=== PATIENT | female | born 1940 | race Caucasian/White ===

== ENCOUNTER 2017-04-28 09:50 | Emergency (ER) | payer MEDICARE, BC ==
[2017-04-28 10:43] LABS: URINE MUCUS NONE SEEN (Up to 25%); URINE RBC NONE SEEN (0-5/hpf); URINE WBC NONE SEEN (0-4/hpf)
[2017-04-28] MEDS ORDERED: ONDANSETRON HCL 4 MG/2 ML VIAL ONE (10:43)
[2017-04-28] MEDS ORDERED: NORMAL SALINE 500 ML IV ONE (10:43)
[2017-04-28] MEDS ORDERED: KETOROLAC TROMETHAMINE 30 MG/ML VIAL ONE (10:43)
[2017-04-28 10:45] LABS: BASOPHIL# 0.1 X 10^3uL (0.0-0.1); BASOPHILS 1.7 % (0.0-2.0); EOSINOPHILS 2.6 % (0.0-6.0); EOSINOPHILS# 0.1 X 10^3uL (0.0-0.4); HEMATOCRIT 43.5 % (36.0-48.0); HEMOGLOBIN 14.7 g/dL (12.0-16.0); LYMPHOCYTES 20.8 % (20.0-40.0); LYMPHOCYTES# 1.1 X 10^3uL (0.8-3.8); MEAN CORPUS. HGB CONCENTRATION 33.8 g/dL (32.0-36.0); MEAN CORPUSCULAR HEMOGLOBIN 30.8 pg (29.0-35.0); MEAN PLATELET VOLUME 8.6 fL (7.4-10.4); MONOCYTES 6.7 % (2.0-10.0); MONOCYTES# 0.4 X 10^3uL (0.2-1.0); NEUTROPHILS 68.2 % (54.0-75.0); NEUTROPHILS# 3.8 X 10^3uL (2.6-6.7); PLATELET COUNT 208 X 10^3uL (130-440); RED BLOOD COUNT 4.78 X 10^6uL (4.20-6.10); RED CELL DISTRIBUTION WIDTH 13.7 % (11.5-14.5); WHITE BLOOD COUNT 5.5 X 10^3uL (3.9-10.7)
[2017-04-28 10:54] LABS: ALBUMIN 4.6 g/dL (3.5-5.0); ALKALINE PHOSPHATASE 61 U/L (38-126); ALT 29 U/L (9-52); AST 20 U/L (14-36); BILIRUBIN, DIRECT 0.1 mg/dL (0.0-0.4); BILIRUBIN, TOTAL 0.7 mg/dL (0.2-1.3); BLOOD UREA NITROGEN 23 mg/dL (7-17); CALCIUM 9.7 mg/dL (8.4-10.2); CHLORIDE 105 mmol/L (98-107); EST GLOMERULAR FILTRATION RATE > 60 mL/min; GLUCOSE 130 mg/dL (70-100); LIPASE 226 U/L (23-300); POTASSIUM 4.2 mmol/L (3.5-5.1); SODIUM 143 mmol/L (137-145); TOTAL PROTEIN 7.9 g/dL (6.3-8.2); URINE APPEARANCE CLEAR; URINE BACTERIA <10 ORGANISMS/hpf (<10/hpf); URINE BILIRUBIN NEGATIVE (NEGATIVE); URINE BLOOD NEGATIVE (NEGATIVE); URINE COLOR YELLOW; URINE GLUCOSE NORMAL (NEGATIVE); URINE KETONE NEGATIVE (NEGATIVE); URINE LEUKOCYTE ESTERASE NEGATIVE (NEGATIVE); URINE NITRITE NEGATIVE (NEGATIVE); URINE PH 5.5 (5-7); URINE PROTEIN 10mg/dL (trace) (NEG - TRACE); URINE SQUAMOUS EPITHELIAL CELL 0-5/hpf (<= 15/hpf); URINE UROBILINOGEN 0.2mg/dL (Normal) (NEG-1mg/dL)
--- NOTE | 2017-04-28 11:51 | ER PHYSICIAN DOCUMENTATION ---
Physician Documentation [facility] Name:Raquel Parada Age:77 yrs Sex:Female :1940 Arrival Date:04/28/2017 Time:09:50 Bed6 Private MD: Pierre Self Disposition: 04/28/17 11:31 Discharged to Home/Self Care. Impression: Abdominal Pain, Right Upper Quadrant, Dehydration. - Condition is Good. - Discharge Instructions: ABDOMINAL PAIN, Unknown Cause, (Female), DEHYDRATION (4y-Adult). - Prescriptions for Zofran 4 mg Oral - take 1 tablet by ORAL route every 6 hours . as needed for nausea or vomiting; 20 tablet. Hydrocodone- Acetaminophen 5-325 mg Oral - take 0.5 tablet by ORAL route every 6 hours As needed; 12 tablet. - Medical Reconciliation form form. - Follow up: Private Physician; When: 7 - 10 days; Reason: Recheck today's complaints, Continuance of care. - Problem is new. - Symptoms are resolved. - Notes: Drink 1- 2 quarts of water every day. Take Ibuprofen 400mg by mouth every 6 hours with food for pain. Take Hydrocodone 1/2 tab by mouth every 6 hours if needed for severe pain Take Zofran 4mg by mouth every 6 hours as needed for nausea or vomiting If worsening pain, fever, chills or severe vomiting arise, go to the nearest ER. Follow up with your doctor in 2 - 3 days for recheck. HPI: 04/28 09:55 This 77 yrs old Female presents to ER via Private Vehicle with complaints of cd Right Flank Pain. 09:55 The patient complains of pain in the right mid back. The pain does not radiate. Onset: cd The symptom(s)/episode began/occurred gradually, 1 week(s) ago. Modifying factors: The symptoms are alleviated by nothing. the symptoms are aggravated by palpation/percussion. Associated signs and symptoms: Pertinent negatives: diarrhea, dysuria, fever, urinary frequency, hematuria, nausea, pain radiating to the lower extremities, vomiting. Severity of pain: At its worst the pain was moderate in the emergency department the pain is unchanged. The patient has experienced a previous episode, and the symptoms today are exactly the same, due to a kidney stone, but the pain was worse. No ETOH, has had her GB out. No history of Pancreatitis. Historical: - Allergies: PENICILLINS; Cipro PO; - Home Meds: 1. amlodipine-benazepril 5-20 mg oral cap 1 cap once daily for Hypertension 2. Ocuvite oral tab 3. Carina Oral - PMHx: HYPERTENSION; allergic rhinitis; cataracts; - PSHx: Cholecysectomy; KNEE SURGERY; - Tetanus: < 10 years. - Ebola Screening: : Patient negative for fever greater than or equal to 101.5 degrees Fahrenheit, and additional compatible Ebola Virus Disease symptoms. Patient denies exposure to infectious person. Patient denies travel to an Ebola-affected area in the 21 days before illness onset. . - Immunization history: Pneumococcal vaccine is up to date, Flu Vaccine < 1 year. - Social history: Smoking status: Patient states was never smoker of tobacco. ROS: 10:10 ENT: Negative for injury, pain, epistaxis and discharge. cd Cardiovascular: Negative for chest pain, palpitations, edema and pleuritic pain. 10:10 Respiratory: Negative for shortness of breath, dyspnea on exertion, cough, sputum cd production, wheezing, hemoptysis and pleuritic chest pain. MS/Extremity: Negative for injury, deformity, edema, calf tenderness, pain or coldness. Skin: Negative for injury, rash, itching and discoloration. 10:10 Neuro: Negative for headache, weakness, numbness, tingling, and seizure. 10:10 Constitutional: Positive for poor PO intake, Negative for chills, fever. 10:10 Abdomen/GI: Positive for abdominal pain, Negative for nausea, vomiting, diarrhea, constipation, abdominal distension, anorexia, hematemesis, black/tarry stool, rectal bleeding. 10:10 Back: Positive for pain at rest, of the right mid back. 10:10 : Negative for urinary symptoms, urinary frequency, pelvic pain, burning with urination, foul smelling urine. 10:10 All other systems are negative. Exam: ENT: Nares patent. No nasal discharge, no septal abnormalities noted. Tympanic membranes are normal and external auditory canals are clear. Oropharynx with no redness, swelling, or masses, exudates, or evidence of obstruction, uvula midline. Mucous membranes moist. Neck: Trachea midline, no thyromegaly or masses palpated, and no cervical lymphadenopathy. Supple, full range of motion without nuchal rigidity, or vertebral point tenderness. No Meningismus. Chest/axilla: Normal chest wall appearance and motion. Nontender with no deformity. No lesions are appreciated. Cardiovascular: Regular rate and rhythm with a normal S1 and S2. No gallops, murmurs, or rubs. Normal PMI, no JVD. No pulse deficits. 10:10 Respiratory: Lungs have equal breath sounds bilaterally, clear to auscultation and cd percussion. No rales, rhonchi or wheezes noted. No increased work of breathing, no retractions or nasal flaring. Skin: Warm, dry with normal turgor. Normal color with no rashes, no lesions, and no evidence of cellulitis. MS/ Extremity: Pulses equal, no cyanosis. Neurovascular intact. Full, normal range of motion. 10:10 Neuro: Awake and alert, GCS 15, oriented to person, place, time, and situation. Cranial nerves II-XII grossly intact. Motor strength 5/5 in all extremities. Sensory grossly intact. Cerebellar exam normal. Normal gait. 10:10 Constitutional: The patient appears alert, awake, non-diaphoretic, non-toxic, well developed, well nourished, in obvious distress, mildly distressed. 10:10 Abdomen/GI: Inspection: abdomen appears normal, Bowel sounds: normal, active, Palpation: mild abdominal tenderness, in the posterior aspect of right lateral abdomen, mass, is not appreciated, rebound tenderness, is not appreciated, voluntary guarding, is not appreciated, involuntary guarding, is not appreciated, no appreciated organomegaly, Rectal exam: the exam is deferred, Indicators: McBurney's point is not tender, Argueta's sign is negative. 10:10 Back: pain, that is mild, of the right mid back, ROM is normal, normal spinal alignment noted, CVA tenderness, that is mild, is noted on the right. 10:10 : CVA tenderness, on the right, Bladder: is normal. Vital Signs: 08:55 BP 165 / 90; Pulse 67; Resp 16; Pulse Ox 99% on R/A; lp 10:10 BP 143 / 97; Pulse 94; Resp 16; Temp 98.1(TE); Pulse Ox 96% on R/A; Weight 68.04 kg; lp Height 5 ft. 8 in. (172.72 cm); Pain 4/10; 10:56 BP 160 / 65; Pulse 70; Resp 16; Pulse Ox 98% on R/A; lp 11:46 BP 108 / 69; Pulse 77; Resp 14; Pulse Ox 96% on R/A; lp 10:10 Body Mass Index 22.81 (68.04 kg, 172.72 cm) lp [place] Coma Score: 10:10 Eye Response: spontaneous(4). Verbal Response: oriented(5). Motor Response: obeys cd commands(6). Total: 15. MDM: 10:23 Patient medically screened. cd 11:15 Differential diagnosis: nephrolithiasis, pyelonephritis, UTI. Data reviewed: vital cd signs, nurses notes, old medical records, lab test result(s), and as a result, I will discharge patient. Data interpreted: Pulse oximetry: on room air is 96 %. Interpretation: normal. Counseling: I had a detailed discussion with the patient and/or guardian regarding: the historical points, exam findings, and any diagnostic results supporting the discharge/admit diagnosis, lab results, the need for outpatient follow up, for a recheck, with the patient's primary care provider, to return to the emergency department if symptoms worsen or persist or if there are any questions or concerns that arise at home. Response to treatment: the patient's symptoms have markedly improved after treatment, the patient's condition has returned to base line, the patient is now symptom free, patient is well hydrated. and as a result, I will discharge patient. 04/28 10:55 Order name: UA W/ MICRO -CULTURE IF IND; Complete Time: 11:30 EDMS 04/28 11:30 Interpretation: Normal. 04/28 10:56 Order name: CBC AUTO DIF, MDIF/RMOR IF IND; Complete Time: 11:30 EDMS 04/28 11:30 Interpretation: Normal. 04/28 10:56 Order name: BASIC METABOLIC PANEL; Complete Time: 11:30 EDMS 04/28 11:30 Interpretation: Normal Except: GLUCOSE 130; Hyperglycemia. 04/28 10:56 Order name: HEPATIC PANEL; Complete Time: 11:30 EDMS 04/28 11:30 Interpretation: Normal. 04/28 10:56 Order name: LIPASE; Complete Time: 11:30 EDMS 04/28 11:30 Interpretation: Normal. 04/28 10:24 Order name: NPO; Complete Time: 10:41 cd Dispensed Medications: 10:40 Drug: Zofran 4 mg; Route: IVP; Infused Over: 2 mins; Site: right forearm; lp 11:32 Follow up: Response: No adverse reaction; Nausea is decreased lp 10:40 Drug: Dilaudid 0.25 mg; Route: IVP; Site: right forearm; lp 11:32 Follow up: Response: No adverse reaction; Pain is decreased lp 10:41 Drug: NS 0.9% 500 ml; Route: IV; Rate: bolus; Site: right forearm; lp 11:41 Follow up: Response: No adverse reaction; No change in condition; IV Status: Completed lp infusion; IV Intake: 500ml 10:41 Drug: Toradol 15 mg; Route: IVP; Site: right forearm; lp 11:32 Follow up: Response: No adverse reaction; Pain is decreased lp Point of Care Testing: Urine Dip: 10:23 pH: 6.0; ; Specific [place]: 1.020; Ketones: Negative; Glucose: Negative; Protein: lp Negative; Leukocytes: Negative; Nitrite: Negative ; Blood: Negative; Bilirubin: Negative ; Urobilinogen: Normal Signatures: Isabela Pettit RN RN Pierre Cm MD MD
--- NOTE | 2017-04-28 11:51 | ER NURSING DOCUMENTATION ---
Nurse's Notes [facility] Name:Raquel Parada Age:77 yrs Sex:Female :1940 Arrival Date:04/28/2017 Time:09:50 Bed6 Private MD: Diagnosis:Abdominal Pain, Right Upper Quadrant;Dehydration Presentation: 04/28 09:52 Acuity: CASSIE 3 tg 10:05 Presenting complaint: Patient states: Right flank pain x 1 week. Transition of care: lp Home. Notified ED Physician of Dr. Cm notified. 10:05 Method Of Arrival: Private Vehicle lp Triage Assessment: 10:09 General: Appears in no apparent distress, Behavior is appropriate for age. Pain: lp Complains of pain in right low back Pain currently is 4 out of 10 on a pain scale. Historical: - Allergies: PENICILLINS; Cipro PO; - Home Meds: 1. amlodipine-benazepril 5-20 mg oral cap 1 cap once daily for Hypertension 2. Ocuvite oral tab 3. Carina Oral - PMHx: HYPERTENSION; allergic rhinitis; cataracts; - PSHx: Cholecysectomy; KNEE SURGERY; - Tetanus: < 10 years. - Ebola Screening: : Patient negative for fever greater than or equal to 101.5 degrees Fahrenheit, and additional compatible Ebola Virus Disease symptoms. Patient denies exposure to infectious person. Patient denies travel to an Ebola-affected area in the 21 days before illness onset. . - Immunization history: Pneumococcal vaccine is up to date, Flu Vaccine < 1 year. - Social history: Smoking status: Patient states was never smoker of tobacco. Screenin:10 Infectious Disease Risk None. Abuse screen: Denies threats or abuse. Denies injuries lp from another. Nutritional screening: No deficits noted. Assessment: 10:10 See Triage Assessment done by same RN. lp Vital Signs: 08:55 BP 165 / 90; Pulse 67; Resp 16; Pulse Ox 99% on R/A; lp 10:10 BP 143 / 97; Pulse 94; Resp 16; Temp 98.1(TE); Pulse Ox 96% on R/A; Weight 68.04 kg; lp Height 5 ft. 8 in. (172.72 cm); Pain 4/10; 10:56 BP 160 / 65; Pulse 70; Resp 16; Pulse Ox 98% on R/A; lp 11:46 BP 108 / 69; Pulse 77; Resp 14; Pulse Ox 96% on R/A; lp 10:10 Body Mass Index 22.81 (68.04 kg, 172.72 cm) lp [place] Coma Score: 10:10 Eye Response: spontaneous(4). Verbal Response: oriented(5). Motor Response: obeys cd commands(6). Total: 15. ED Course: 09:51 Patient arrived in ED. arc 09:52 Triage completed. tg 10:05 Isabela Pettit RN is Primary Nurse. lp 10:[address] Cm notified. lp 10:10 Valuables Remains with patient Patient has correct armband on for positive lp identification. Placed in gown. Bed in low position. Call light in reach. 10:23 Pierre Cm MD is Attending Physician. cd 10:43 Inserted saline lock: 20 gauge in right forearm and blood collected. dg Administered Medications: 10:40 Drug: Zofran 4 mg; Route: IVP; Infused Over: 2 mins; Site: right forearm; lp 11:32 Follow up: Response: No adverse reaction; Nausea is decreased lp 10:40 Drug: Dilaudid 0.25 mg; Route: IVP; Site: right forearm; lp 11:32 Follow up: Response: No adverse reaction; Pain is decreased lp 10:41 Drug: NS 0.9% 500 ml; Route: IV; Rate: bolus; Site: right forearm; lp 11:41 Follow up: Response: No adverse reaction; No change in condition; IV Status: Completed lp infusion; IV Intake: 500ml 10:41 Drug: Toradol 15 mg; Route: IVP; Site: right forearm; lp 11:32 Follow up: Response: No adverse reaction; Pain is decreased lp Point of Care Testing: Urine Dip: 10:23 pH: 6.0; ; Specific [place]: 1.020; Ketones: Negative; Glucose: Negative; Protein: lp Negative; Leukocytes: Negative; Nitrite: Negative ; Blood: Negative; Bilirubin: Negative ; Urobilinogen: Normal Intake: 11:41 IV: 500ml; Total: 500ml. lp Outcome: 11:31 Discharge ordered by . cd 11:47 Discharged to home ambulatory. lp 11:47 Condition: improved 11:47 Instructed on discharge instructions, follow up and referral plans. medication usage. 11:49 Patient left the ED. roverto 04/29 16:48 Discharge F/U Call: Unable to reach: left voicemail: juan francisco Signatures: Aneesh Rosenberg RN RN Sharona Mclain RN RN lc Pavlish, Lena, RN RN lp Daley, Chris, MD MD cd Green, Debra dg Chew, Amelia, Lazarus Reg arc
== END 2017-04-28 11:50 | disposition home or self-care (01) ==
LOC: ER 09:50
DX: R10.11 Right upper quadrant pain (principal); E86.0 Dehydration; M54.89 Other dorsalgia; I10 Essential (primary) hypertension; Z79.899 Other long term (current) drug therapy
CPT/HCPCS: 80048; 80076; 81001; 83690; 85025; 96361; 96374; 96375; 99284; J1170; J1885; J2405; J7040